=== PATIENT | male | born 1980 | race Caucasian/White ===

== ENCOUNTER 2017-12-12 00:31 | Emergency (ER) | payer OTHER ==
[~2017-12-12] VITALS: Ht 170.2 cm; Wt 106.2 kg
[2017-12-12 00:38] VITALS: TEMP 36.8; Ht 170.2 cm; Wt 106.2 kg
[2017-12-12] MEDS ORDERED: HYDROCODONE/HOMATROPINE SYRUP 5MG/1.5MG 5ML UDP PO STA (00:45)
[2017-12-12] MEDS ORDERED: ALBUT/IPRATROP 3MG/0.5MG NEB 3 ML VIAL INH STA (00:45)
--- NOTE | 2017-12-12 01:06 | EMERGENCY ROOM VISIT NOTE ---
History First contact with patient: 00:40 Chief Complaint: RESPIRATORY PROBLEMS Stated Complaint: HAVING TROUBLE CATCHING BREATH,COUHG Nursing Triage Summary: after going out to smoke,he began uncontrollably coughing and vomitted once History of Present Illness The patient is a 37 year old male who presents to the Emergency Room with complaints of uncontrollable cough which started within the past hour. The patient states he has a history of asthma. He states that he stepped outside for a cigarette and after a few puffs on a cigarette, he lost his breath and developed a cough. He has had a persistent, uncontrollable cough since then. He states that he had one episode of vomiting because he was coughing so hard. He has also had some dry heaving. He rates his discomfort an 8/10. He states that his chest is uncomfortable due to the cough. Review of Systems A complete 10 point review of systems was reviewed with the patient with pertinent positives and negatives as per history of present illness. All else were negative. Past Medical/Surgical History Medical Problems: (1) Asthma Social History Smoking Status: Current Every Day Smoker Occupation Status: employed Current/Historical Medications No Active Prescriptions or Reported Meds Physical Exam Vital Signs Date Time Temp Pulse Resp B/P (MAP) Pulse Ox O2 Delivery O2 Flow Rate FiO2 12/12/17 03:31 82 16 113/75 96 12/12/17 02:54 66 16 114/59 98 Room Air 12/12/17 00:55 Room Air 12/12/17 00:38 36.8 105 25 124/77 95 Room Air Physical Exam VITALS: Vitals are noted on the nurse's note and reviewed by myself. Vital signs stable. GENERAL: This is a 37-year-old male, sitting up in bed, coughing persistently, well-developed well-nourished. EARS: External auditory canals clear, tympanic membranes pearly buchanan without erythema or effusion bilaterally. EYES: Pupils equal round and reactive to light and accommodation. MOUTH: Mucous membranes moist. NECK: Supple without nuchal rigidity. HEART: Regular rate and rhythm without murmurs gallops or rubs. LUNGS: Minimal expiratory wheezes. Persistent dry coughing. No retractions or accessory muscle use. ABDOMEN: Soft, nontender to palpation. NEURO: Patient was alert and oriented to person place and time. Medical Decision & Procedures ER Provider Diagnostic Interpretation: CHEST X-RAY: No acute findings. No infiltrates. No pneumothorax. Medications Administered Medications (Trade) Dose Ordered Sig/Dany Route Start Time Stop Time Status Last Admin Dose Admin Albuterol/ Ipratropium (Duoneb) 3 ml NOW STAT INH 12/12/17 00:45 12/12/17 00:46 DC 12/12/17 00:51 3 ML Hydrocodone Bit/ Homatropine Methylb (Hycodan Syrup) 10 ml NOW STAT PO 12/12/17 00:45 12/12/17 00:46 DC 12/12/17 00:51 10 ML Ibuprofen (Motrin Tab) 600 mg NOW STAT PO 12/12/17 01:37 12/12/17 01:38 DC 12/12/17 01:49 600 MG Albuterol (Ventolin Hfa Inhaler) 2 puffs NOW ONCE INH 12/12/17 03:15 12/12/17 03:16 DC 12/12/17 03:28 2 PUFFS Medical Decision The patient was evaluated as above. His symptoms are consistent with an acute asthma exacerbation, likely triggered by the cold weather and cigarette smoke. Patient was given a DuoNeb and Hycodan. He had significant improvement of symptoms. He did report some mild discomfort in the epigastric region which I feel is likely due to the episode of vomiting and dry heaving. Patient was given a Ventolin inhaler and instructed on use. He was given ibuprofen for pain. He was advised to follow-up with his PCP for further evaluation. He verbalized understanding of my assessment and treatment plan and was discharged home in good condition. Medication Reconcilliation Current Medication List: was personally reviewed by me Blood Pressure Screening Patient's blood pressure: Normal blood pressure Impression Primary Impression: Asthma exacerbation Departure Information Dispostion Home / Self-Care Condition GOOD Prescriptions No Active Prescriptions or Reported Meds Referrals No Doctor, Assigned (PCP) Patient Instructions [facility] Additional Instructions Use the Ventolin inhaler, 2 puffs every 4-6 hours as needed for cough/shortness of breath. Avoid asthma triggers like cigarettes and cold air. For pain control, you can use the following [id number] medicines (if >12 yo): - Regular strength (325mg/tab) Tylenol (acetaminophen) 2 tabs every 4-6 hours as needed. Do not exceed 12 tablets in a 24 hour period. Avoid taking more than 4 grams (4000 mg) of Tylenol per day. This includes any other sources of acetaminophen you may take on a regular basis. - Regular strength (200 mg/tab) Advil (ibuprofen) 1-2 tabs every 4-6 hours as needed. Do not exceed a dose of 3200 mg per day. Follow-up with your primary care provider this week for recheck. Return to the emergency department with any worsening or new/concerning symptoms. Problem Qualifiers Primary Impression: Asthma exacerbation Asthma severity: unspecified severity Asthma persistence: unspecified Qualified Codes: J45.901 - Unspecified asthma with (acute) exacerbation
[2017-12-12] MEDS ORDERED: IBUPROFEN 600 MG TAB PO STA (01:37)
[2017-12-12] MEDS ORDERED: ALBUTEROL HFA 8 GM INHALER INH ONE (03:15)
[2017-12-12 03:31] VITALS: BP 113/75; PULSE 82; O2SAT 96
--- NOTE | 2017-12-12 07:28 | DIAGNOSTIC IMAGING REPORT ---
CHEST 2 VIEWS ROUTINE CLINICAL HISTORY: 37 years-old Male presenting with cough, sob. TECHNIQUE: PA and lateral views of the chest were obtained. COMPARISON: None. FINDINGS: Cardiomediastinal silhouette normal. Lungs and pleural spaces clear. Osseous structures normal. Upper abdomen normal. IMPRESSION: 1. No acute cardiopulmonary disease. Electronically signed by: Wolfgang Knowles M.D. 12/12/2017 7:27 AM Dictated Date/Time: 12/12/2017 7:00 AM
== END 2017-12-12 03:32 | disposition home or self-care (01) ==
LOC: C.EDB 00:33 → C.EDA 03:32
DX: J45.901 Unspecified asthma with (acute) exacerbation (principal); R11.10 Vomiting, unspecified; F17.200 Nicotine dependence, unspecified, uncomplicated